=== PATIENT | male | born 1970 | race Caucasian/White ===

== ENCOUNTER 2017-07-18 17:03 | Emergency (ER) | payer OTHER ==
--- NOTE | 2017-07-18 17:06 | ED Physician Documentation ---
PD HPI UPPER EXT INJURY - Stated complaint Stated Complaint: LEFT MIDDLE FINGER LAC - History obtained from History obtained from: Patient - History of Present Illness Location: Left, Finger (middle) Type of injury: Blunt / blow (working on engine block and heavy part struck finger, with laceration and bruising. He does not feel it is broken. Has lac around ulnar side of the mid finger.) Where injury occurred: Home Timing - onset: Today Timing - details: Abrupt onset, Still present Associated symptoms: Numbness (just distal to the laceration). No: Weakness Contributing factors: No: Anticoagulated (but takes aspirin daily post CVA.) Similar symptoms before: Has not had sx before Recently seen: Not recently seen Review of Systems Skin: reports: Laceration (s) Neurologic: denies: Confused, Altered mental status, Headache, Head injury PD PAST MEDICAL HISTORY - Past Medical History Cardiovascular: None Respiratory: None Neuro: CVA Endocrine/Autoimmune: None - Present Medications Home Medications: Ambulatory Orders Medication Instructions Recorded Confirmed Aspirin 325 mg PO DAILY 07/18/17 07/18/17 Atorvastatin [Lipitor] 0 mg PO DAILY 07/18/17 07/18/17 Esomeprazole Magnesium [Nexium] 20 mg PO BID 07/18/17 07/18/17 - Allergies Allergies/Adverse Reactions: Allergies Allergy/AdvReac Type Severity Reaction Status Date / Time No Known Drug Allergies Allergy Verified 07/18/17 17:10 PD ED PE NORMAL - Vitals Vital signs reviewed: Yes - General General: Alert and oriented X 3, No acute distress, Well developed/nourished - Derm Derm: Normal color, Warm and dry - Extremities Extremities: Other (left middle finger with laceration at middle phalanx ulnar side down to fatty tissue. It exposes the tendon sheath but not lacerated of it. Movement is good. He has no sensation to touch/sharp distal to the lac on that ulnar side. Good color and cap refill to the tip. Nailbed with mild bruising. The distal nail at index finger with partial laceration of distal nail , but not at matrix of the nail. ) - Neuro Neuro: Alert and oriented X 3, No motor deficit, Normal speech. No: No sensory deficit Results - Vitals Vitals: Vital Signs - 24 hr 07/18/17 17:07 Temperature 36.9 C Heart Rate 93 Respiratory 19 Rate Blood Pressure 123/90 H O2 Saturation 93 Oxygen O2 Source Room air Procedures - Laceration (location) left middle finger Length in cm: 2 Wound type: Curved, Into subcut fat, Clean Neurovascular status: Motor intact (he can flex at tip and extend.), Vascular intact. No: Sensory intact (no sensation just distal to the laceration on the ulnar side.) Tendon involvement: Tendon intact Anesthesia: Lidocaine 1%, Marcaine 0.5% Wound Preparation: Irrigated copiously NS, Wound explored, Wound edges modified. No: FB identified Skin layer closure: Nylon, Running, Size #-0 - enter number (4), Sutures - enter # (11) Other: Patient tolerated well, No complications, Dressing applied, Tetanus UTD Complexity: Simple PD MEDICAL DECISION MAKING - ED course Complexity details: reviewed results (discussed with him and shared decision deferred xrays as does not seem broken), considered differential, d/w patient Departure - Departure Disposition: 01 Home, Self Care Clinical Impression: Crush injury to finger Qualifiers: Encounter type: initial encounter Qualified Code(s): S67.10XA - Crushing injury of unspecified finger(s), initial encounter Finger laceration Qualifiers: Encounter type: initial encounter Finger: middle finger Damage to nail status: without damage Foreign body presence: without foreign body Laterality: left Qualified Code(s): S61.213A - Laceration without foreign body of left middle finger without damage to nail, initial encounter Condition: Stable Record reviewed to determine appropriate education?: Yes Instructions: ED Laceration Hand Follow-Up: AINSLEY DUMONT [Primary Care Provider] - Comments: It is okay to wash and shower. Clean off the wound twice a day with soap and water, or peroxide and water. Apply some antibiotic ointment to it to keep it moist. Also to watch for signs of infection such as purulence, redness or increasing pain. Return to your primary care or the ER at the specified time for suture removal. Suture removal 10-14 days. Ibuprofen 800 mg 3 times a day if needed for pain. Use a finger splint to protect the finger when doing activity or use of the hands. Otherwise it does not need to be splinted all the time. The numb area beyond the laceration is likely from cutting the nerve. There can be encroachment and growth of the surrounding nerves to that area over 3-6 months so some feeling should come back to it. Discharge Date/Time: 07/18/17 18:18
[2017-07-18 17:12] VITALS: BP 123/90
== END 2017-07-18 18:18 | disposition home or self-care (01) ==
LOC: ED 17:03
DX: S67.193A Crushing injury of left middle finger, initial encounter (principal); S61.213A Laceration without foreign body of left middle finger without damage to nail, initial encounter; W23.1XXA Caught, crushed, jammed, or pinched between stationary objects, initial encounter; Y92.018 Other place in single-family (private) house as the place of occurrence of the external cause; Z86.73 Personal history of transient ischemic attack (TIA), and cerebral infarction without residual deficits
CPT/HCPCS: 12001; 99282; 99283

== ENCOUNTER 2018-11-23 08:36 | Outpatient (CLI) | payer OTHER ==
[2018-11-23] MEDS ORDERED: SINCALIDE 5 MCG VIAL ONE (09:56)
[2018-11-23] MEDS ORDERED: SODIUM CHLORIDE 0.9% IV ONE (11:26)
[2018-11-23] MEDS ORDERED: SINCALIDE IV ONE (11:26)
--- NOTE | 2018-11-23 17:02 | Nuclear Medicine Report ---
Reason: RIGHT UPPER QUADRANT PAIN,NONCARDIAC CHEST PAIN Procedure Date: 11/23/2018 Accession Number: [id number] / [id number] Procedure: NM - Hepatobiliary HIDA w/ Rx CPT Code: FULL RESULT: EXAM: HEPATOBILIARY SCAN WITH CCK/KINEVAC ADMINISTRATION EXAM DATE: 11/23/2018 11:27 AM. CLINICAL HISTORY: RIGHT UPPER QUADRANT PAIN,NONCARDIAC CHEST PAIN. COMPARISON: None available. TECHNIQUE: Following the intravenous administration of 5.2 mCi of Tc99m Mebrofenin, a hepatobiliary scan was done centered on the liver and gallbladder in multiple sequential images and projections. Following the intravenous administration of 1.78 mcg of CCK/ Kinevac over the course of approximately 60 minutes, dynamic imaging was done and the gallbladder ejection fraction was calculated. FINDINGS: Normal extraction of tracer from the blood pool indicating normal hepatocellular function. The liver size and shape is grossly within normal limits. There is activity visualized within the bile ducts, gallbladder, and small bowel during the first hour. With CCK administration, the gallbladder demonstrates an effective contraction. The gallbladder ejection fraction is calculated to be 83%, well above the lower limit of normal of 38% for a 60-minute injection. The patient did not report symptoms after CCK administration. No evidence of enteric reflux into the stomach. No significant collection of tracer remaining in the common bile duct by the end of the study. IMPRESSION: 1. Patent cystic duct. 2. Patent common bile duct. 3. Negative for acute or chronic cholecystitis. 4. No enterogastric bile reflux. 5. Gallbladder ejection fraction of 83%. RADIA
== END 2018-11-23 08:37 | disposition home or self-care (01) ==
LOC: DI 08:36
PROVIDERS: ATTEND Internal Medicine
DX: R10.11 Right upper quadrant pain (principal); R07.82 Intercostal pain
CPT/HCPCS: 78227; J7040

== ENCOUNTER 2019-01-07 06:07 | Day surgery (SDC) | payer OTHER ==
[2019-01-07] MEDS ORDERED: LACTATED RINGERS 1,000 ML IV ONE (06:20)
[2019-01-07] MEDS ORDERED: CEFAZOLIN SODIUM IN 0.9 % NACL 2 GM/100 ML BAG IV ONE (07:00)
--- NOTE | 2019-01-07 07:08 | ANESTHESIA ---
Pre-Anesthesia VS, & Labs - Diagnosis umbilical hernia, inguinal hernia on left - Procedure left inginal hernia repair, umbilical hernia repair Vital Signs: Temp Pulse Resp BP Pulse Ox 36.2 C L 69 16 142/88 H 97 01/07/19 06:30 01/07/19 06:30 01/07/19 06:30 01/07/19 06:30 01/07/19 06:30 Height 6 ft Weight (kg) 94 kg Body Mass Index 27.1 - NPO >8 hours Home Medications and Allergies Home Medications: Ambulatory Orders Pantoprazole Sodium [Protonix] 40 mg PO DAILY 01/03/19 Ropinirole HCl 1 mg PO TID 01/03/19 Sumatriptan Succinate [Imitrex] 50 mg PO ONCE PRN 01/03/19 Aspirin 325 mg PO DAILY 07/18/17 Atorvastatin [Lipitor] 10 mg PO DAILY 07/18/17 Pantoprazole Sodium [Protonix] 40 mg PO DAILY 01/03/19 Ropinirole HCl 1 mg PO TID 01/03/19 Sumatriptan Succinate [Imitrex] 50 mg PO ONCE PRN 01/03/19 Allergies/Adverse Reactions: Allergies Allergy/AdvReac Type Severity Reaction Status Date / Time No Known Drug Allergies Allergy Verified 07/18/17 17:10 Anes History & Medical History - Medical History Cardiovascular: reports: None Pulmonary: reports: None, Sleep apnea (being worked up) Gastrointestinal: reports: GERD Urinary: reports: None Musculoskeletal: reports: Osteoarthritis, Chronic back pain, Other Endocrine/Autoimmune: reports: None Skin: reports: Eczema Smoking Status: Never smoker - Surgical History General: EGD Exam General: Alert Dental: WNL Mouth Opening: Greater than 4 Fingerbreadths Mallampati classification: I Thyromental Distance: greater than 6 cm Respiratory: Lungs clear Cardiovascular: Regular rate, Normal S1, Normal S2 Mental/Cognitive Status: Alert/Oriented X3 Plan Anesthesia Type: General Consent for Procedure(s) Verified and Reviewed: Yes Code Status: Attempt Resuscitation ASA classification: 2-Mild systemic disease Is this case an emergency?: No
[2019-01-07] MEDS ORDERED: BUPIVACAINE 0.5% PF 10 ML VIAL ONE (07:20)
[2019-01-07] MEDS ORDERED: BUPIVACAINE 0.5% PF 30 ML VIAL SUBQ ONE ×2 (07:52→08:52)
[2019-01-07] MEDS ORDERED: PROPOFOL 200 MG/20 ML VIAL IVP ONE (08:27)
[2019-01-07] MEDS ORDERED: MIDAZOLAM 2 MG/2 ML VIAL IVP ONE (08:27)
[2019-01-07] MEDS ORDERED: fentaNYL 250 MCG/5 ML VIAL IVP ONE (08:27)
[2019-01-07] MEDS ORDERED: KETOROLAC 30 MG/ML VIAL IVP ONE (08:27)
[2019-01-07] MEDS ORDERED: ONDANSETRON 4 MG/2 ML VIAL IVP ONE (08:27)
[2019-01-07] MEDS ORDERED: DEXAMETHASONE 4 MG/ML VIAL IVP ONE (08:27)
[2019-01-07] MEDS ORDERED: HYDROcod/ACETAM 5/325 MG TABLET PO PRN (09:14)
[2019-01-07] MEDS ORDERED: HYDROmorphone 0.5 MG/0.5 ML SYRINGE IVP PRN (09:14)
[2019-01-07] MEDS ORDERED: ONDANSETRON 4 MG/2 ML VIAL IVP PRN (09:14)
--- NOTE | 2019-01-07 09:20 | OPERATIVE REPORT ---
Operative Report - General Procedure Date: 01/07/19 Planned Procedure: Left inguinal herniorrhaphy and umbilical herniorrhaphy Pre-Op Diagnosis: Left inguinal hernia and umbilical hernia Procedure Performed: Left direct inguinal herniorrhaphy with mesh and excision cord lipoma Umbilical herniorrhaphy with mesh Post Op Diagnosis: Left direct inguinal hernia, cord lipoma, umbilical hernia - Procedure Note Primary Surgeon: Hemant Mcdonald MD Anesthesia Provider: Sergio Bailey CRNA Anesthesia Technique: General LMA, Local (30 mL of half percent Marcaine (20 mL in the inguinal region, 10 mL in the umbilical region)) IV Fluids (mL): 1,100 Estimated Blood Loss (mL): 10 Drain/Tube Type: Other (None.) Complications: None. - Other Other Information/Narrative: OPERATIVE DESCRIPTION/REPORT: After verbal and written informed consent was obtained detailing the risks of infection, bleeding requiring transfusion with its risks, nerve injury, and , and after I met with the patient confirming the surgery and the site of the surgery and after initialing the sites of the surgery with a surgical marker, the patient was brought to the operative suite and placed supine on the operating table. Great care was taken to avoid pressure points to prevent pressure necrosis or nerve injury. Monitoring devices were applied along with TEDs and pneumatic compressive stockings (to prevent DVT). The patient received preoperative antibiotics for surgical prophylaxis. Sergio Bailey CRNA sedated and anesthetized the patient for the entire procedure. The patient was prepped and draped in the usual sterile manner. With the patient draped my initials were clearly visible. A "time in" then confirmed that the patient was identified with 3 identifiers (name, date and medical record number), the history and physical was in the chart, the signed consent confirming the procedure was in the chart, the patient was in the correct position, the aforementioned prophylactic measures were in place or given, we had the correct personnel and equipment to complete the procedure and that anesthesia, surgery and nursing were given an opportunity to express any concerns. With the agreement of everyone in the room, we proceeded with the operation. The inguinal area was addressed first. A standard inguinal incision was made and dissection was carried down to the external oblique aponeurosis using a combination of Metzenbaum scissors and Bovie electrocautery. The external oblique aponeurosis was cleared of overlying adherent tissue, and the external ring was delineated. The external oblique was the incised with a scalpel and this incision was carried out to the external ring using Metzenbaum scissors. Having exposed the inguinal canal, the cord structures were from the c anal using blunt dissection, and a Woodford drain was placed around the cord structures at the level of the pubic tubercle. This Woodford drain was then used to retract the cord structures as needed. Adherent cremasteric muscle was dissected free from the cord using Bovie electrocautery. The cord was then explored using a combination of sharp and blunt dissection, and no sac was found. Dissection along the cord structures found a lipoma that was dissected back to the internal ring, ligated with a 3-0 Vicryl, transected, the stump cauterized and allowed to retract back into the abdomen. The hernia was found coming from the floor of the inguinal canal medial to the inferior epigastric vessels. This was dissected back to the hernia opening. The hernia was inverted back into the abdominal cavity and a large Bard Perfix plug (Ref# [id number], Lot# [id number], use by 2023-07-02) inserted into the hernia defect. The plug was secured to the edge of the hernia defect using interrupted 2-0 PDS s utures. This permitted the floor of the inguinal canal to be repaired without the hernia in my way. The Perfix enlay patch was then placed on the floor of the inguinal canal and secured superiorly to the conjoined tendon and inferiorly to the shelving edge of Pouparts ligament using interrupted 2-0 PDS sutures. At the pubic tubercle a 0 PDS stitch was used to secure the mesh. The mesh was secured around the cord structures with a 0 PDS loosely thus creating a new internal ring. The Steve drain was removed. The wound was then irrigated using sterile saline, and hemostasis was obtained using Bovie electrocautery. The incision in the external oblique was approximated using a 2-0 Vicryl in a running fashion, thus reforming the external ring. The skin and fascia was then injected with 20 mL of half percent Marcaine for long-term anesthetic control. The skin incision was approximated with 4-0 Monocryl in a subcuticular fashion. The umbilical hernia was then addressed. A standard curvilinear umbilical incision was made and dissection was carried down to the hernia sac using a combination of Metzenbaum scissors and Bovie electrocautery. The sac was cleared of overlying adherent tissue, and the fascial defect was delineated. The fascia was cleared of any adherent tissue for a distance 1.5 cm from the defect. The sac and contents (fat) was resected using Bovie electrocautery. The defect was closed using a Ventralex ST hernia patch (Lot# [id number], Ref# [id number], use by 2020-09-02). This was secured to the fascia using interrupted 2-0 PDS sutures superiorly and inferiorly utilizing the straps and trimming the excess strap. Laterally I placed a 2-0 PDS for additional support. The patient was then given an ``innie by suturing the back of the umbilicus to the fascia using a 2-0 Vicryl. Meticulous hemostasis was obtained using Bovie electrocautery. The fascia and skin were injected with 10 mL of half percent Marcaine for long-term anesthetic control. The skin incision was approximated with a running subcuticular 4-0 Monocryl. After the prep was washed off, Dermabond was applied. At this point a time out was performed that confirmed that all the counts were correct, the procedure that was performed, the blood loss, the IV fluids administered, and the patients condition. Gentle downward traction ensured that the testes were well seated in the scrotum. Having tolerated the procedure well, the patient was taken to recovery room in good and stable condition. Dragon disclaimer: This document was created in part using voice recognition technology. Because of the inherent limitations of the system ([employer]'s [employer] user manual states that the licensee understands that speech recognition is a statistical process and that recognition errors are inherent in the process), occasional same sounding word substitutions and grammatical errors do occur and persist despite proofreading. Please read this document for context.
[2019-01-07 10:19] VITALS: BP 130/78
== END 2019-01-07 06:08 | disposition home or self-care (01) ==
LOC: SDS 06:07
PROVIDERS: ATTEND Surgery
PROC: 0VBG0ZZ Excision of Left Spermatic Cord, Open Approach (ICD-10-PCS; 2019-01-07)
PROC: 0YU60JZ Supplement Left Inguinal Region with Synthetic Substitute, Open Approach (ICD-10-PCS; principal; 2019-01-07 07:30)
PROC: 0WUF0JZ Supplement Abdominal Wall with Synthetic Substitute, Open Approach (ICD-10-PCS; 2019-01-07 07:30)
DX: K40.90 Unilateral inguinal hernia, without obstruction or gangrene, not specified as recurrent (principal); K42.9 Umbilical hernia without obstruction or gangrene; D17.6 Benign lipomatous neoplasm of spermatic cord; G47.30 Sleep apnea, unspecified; K21.9 Gastro-esophageal reflux disease without esophagitis; F41.0 Panic disorder [episodic paroxysmal anxiety]; Z79.82 Long term (current) use of aspirin; Z86.73 Personal history of transient ischemic attack (TIA), and cerebral infarction without residual deficits
CPT/HCPCS: 49505; 49585; C1781; J0690; J3010; J7120